=== PATIENT | male | born 1955 | race Caucasian/White ===

== ENCOUNTER 2016-10-11 10:18 | Emergency (ER) | payer MEDICAID ==
[~2016-10-11] VITALS: Ht 172.7 cm; Wt 73.6 kg
[2016-10-11 11:57] LABS: ASPARTATE AMINO TRANSFERASE 18 U/L (15-37); BLOOD UREA NITROGEN 17 mg/dL (7-18)
[2016-10-11] MEDS ORDERED: AMIT25TA PO (12:50)
[2016-10-11] MEDS ORDERED: TIOT18CA INH (12:52)
[2016-10-11] MEDS ORDERED: ALBU18HF INH (12:52)
[2016-10-11] MEDS ORDERED: NAPR500T3 PO (12:52)
[2016-10-11 15:41] VITALS: BP 161/87
== END 2016-10-11 15:43 | disposition home or self-care (01) ==
LOC: ED 14:52
DX: R10.13 Epigastric pain (principal); R10.12 Left upper quadrant pain; R10.11 Right upper quadrant pain; J45.909 Unspecified asthma, uncomplicated
CPT/HCPCS: 36415; 74176; 80053; 81001; 83690; 85025; 87086; 93005; 99285

== ENCOUNTER 2016-11-24 14:38 | Emergency (ER) | payer MEDICAID ==
[~2016-11-24] VITALS: Ht 172.7 cm; Wt 70.7 kg
[~2016-11-24 14:38] MED LIST: ALBU18HF INH; AMIT25TA PO; NAPR500T3 PO; TIOT18CA INH
[2016-11-24] MEDS ORDERED: ONDANSETRON ODT 4 MG PO ONE (15:30)
[2016-11-24 16:06] VITALS: BP 110/71
== END 2016-11-24 16:48 | disposition left against medical advice (07) ==
LOC: ED 16:42
DX: S06.0X9A Concussion with loss of consciousness of unspecified duration, initial encounter (principal); K21.9 Gastro-esophageal reflux disease without esophagitis; J45.909 Unspecified asthma, uncomplicated; F17.210 Nicotine dependence, cigarettes, uncomplicated; W20.8XXA Other cause of strike by thrown, projected or falling object, initial encounter; Y93.89 Activity, other specified; Y92.89 Other specified places as the place of occurrence of the external cause; Y99.8 Other external cause status
CPT/HCPCS: 70450; 72125; 99284

== ENCOUNTER 2016-12-07 09:09 | Emergency (ER) | payer MEDICAID ==
[~2016-12-07] VITALS: Ht 172.7 cm; Wt 71.9 kg
[2016-12-07 09:16] VITALS: BP 119/75
[2016-12-07] MEDS ORDERED: DIAZEPAM 5 MG TABLET ONE (10:51)
[2016-12-07] MEDS ORDERED: KETOROLAC 30 MG/1 ML ONE (10:51)
[2016-12-07] MEDS ORDERED: KETOROLAC 30 MG/1 ML IM ONE (11:00)
[2016-12-07] MEDS ORDERED: DIAZEPAM 5 MG TABLET PO ONE (11:00)
== END 2016-12-07 11:51 | disposition home or self-care (01) ==
LOC: ED 11:35
DX: S16.1XXA Strain of muscle, fascia and tendon at neck level, initial encounter (principal); J20.9 Acute bronchitis, unspecified; K21.9 Gastro-esophageal reflux disease without esophagitis; J45.909 Unspecified asthma, uncomplicated; X58.XXXA Exposure to other specified factors, initial encounter; Y93.89 Activity, other specified; Y92.89 Other specified places as the place of occurrence of the external cause; Y99.9 Unspecified external cause status
CPT/HCPCS: 96372; 99283; J1885

== ENCOUNTER 2016-12-22 05:47 | Emergency (ER) | payer OTHER ==
[~2016-12-22] VITALS: Ht 172.7 cm; Wt 70.1 kg
[2016-12-22] MEDS ORDERED: ONDANSETRON ODT 4 MG PO ONE (06:00)
[2016-12-22] MEDS ORDERED: ONDANSETRON ODT 4 MG ONE (06:08)
[2016-12-22 06:58] VITALS: BP 126/75
== END 2016-12-22 07:00 | disposition home or self-care (01) ==
LOC: ED 06:07
DX: R11.2 Nausea with vomiting, unspecified (principal); K21.9 Gastro-esophageal reflux disease without esophagitis; J45.909 Unspecified asthma, uncomplicated
CPT/HCPCS: 93005; 99283; Q0162

== ENCOUNTER 2017-02-15 17:44 | Emergency (ER) | payer MEDICAID, OTHER ==
[~2017-02-15] VITALS: Ht 172.7 cm; Wt 69.8 kg
[~2017-02-15 17:44] MED LIST changes: -NAPR500T3 PO; +NAPR500T4 PO
[2017-02-15] MEDS ORDERED: KETOROLAC 30 MG/1 ML IM ONE (18:00)
[2017-02-15] MEDS ORDERED: DIAZEPAM 5 MG TABLET PO ONE (18:00)
[2017-02-15] MEDS ORDERED: KETOROLAC 30 MG/1 ML ONE (18:25)
[2017-02-15] MEDS ORDERED: DIAZEPAM 5 MG TABLET ONE (18:25)
[2017-02-15 19:07] VITALS: BP 143/90
== END 2017-02-15 19:10 | disposition home or self-care (01) ==
LOC: ED 19:04
DX: M25.512 Pain in left shoulder (principal); R20.0 Anesthesia of skin; K21.9 Gastro-esophageal reflux disease without esophagitis; J45.909 Unspecified asthma, uncomplicated; F17.200 Nicotine dependence, unspecified, uncomplicated; W18.30XA Fall on same level, unspecified, initial encounter; Y93.89 Activity, other specified; Y92.828 Other wilderness area as the place of occurrence of the external cause; Y99.8 Other external cause status
CPT/HCPCS: 73030; 96372; 99284; J1885